=== PATIENT | female | born 1970 | race African-American/Black ===

== ENCOUNTER → 2016-07-04 | Outpatient (CLI) | payer MEDICAID ==
[2016-07-04 09:52] LABS: ABSOLUTE EOSINOPHILS # (AUTO) 0.2 10^3/uL (0.0-0.6); ABSOLUTE MONOCYTES (AUTO) 0.5 10^3/uL (0.1-1.4); ABSOLUTE NEUT (AUTO) 3.2 10^3/uL (1.7-8.2); BASOPHILS % (AUTO) 0.5 % (0-2); EOSINOPHILS % (AUTO) 3.2 % (0-6); HEMATOCRIT 38.2 % (36.0-47.0); HEMOGLOBIN 12.4 g/dL (12.0-15.5); MEAN CORPUSCULAR HEMOGLOBIN 26.2 pg (27.0-33.4); MEAN CORPUSCULAR HGB CONC 32.3 g/dL (32.0-36.0); MEAN CORPUSCULAR VOLUME 81 fl (80-97); RED BLOOD COUNT 4.72 10^6/uL (3.72-5.28); RED CELL DISTRIBUTION WIDTH 14.9 % (11.5-14.0); SEGMENTED NEUTROPHILS % (AUTO) 46.3 % (42-78); WHITE BLOOD COUNT 6.9 10^3/uL (4.0-10.5)
[2016-07-04 10:22] LABS: BLOOD UREA NITROGEN 8 mg/dL (7-20); CALCIUM 10.2 mg/dL (8.4-10.2); GLUCOSE 99 mg/dL (75-110)
[2016-07-04 10:23] LABS: ALANINE AMINOTRANSFERASE 24 U/L (9-52); ALBUMIN 4.1 g/dL (3.5-5.0); ALKALINE PHOSPHATASE 106 U/L (38-126); ANION GAP 8 (5-19); ASPARTATE AMINO TRANSFERASE 17 U/L (14-36); BILIRUBIN,TOTAL 0.6 mg/dL (0.2-1.3); CARBON DIOXIDE 31 mmol/L (22-30); CHLORIDE 103 mmol/L (98-107); CHOLESTEROL 203.69 mg/dL (0-200); Direct HDL 54 mg/dL (>40); POTASSIUM 4.1 mmol/L (3.6-5.0); SODIUM 142.1 mmol/L (137-145); TOTAL PROTEIN 7.7 g/dL (6.3-8.2); TRIGLYCERIDES 117 mg/dL (<150)
[2016-07-04 10:33] LABS: DIRECT LDL 115 mg/dL (<100)
[2016-07-04 10:47] LABS: THYROID STIMULATING HORMONE 2.61 uIU/mL (0.47-4.68)
== END ==
LOC: OD 08:28
PROVIDERS: ATTEND Nurse Practitioner Psychiatric/Mental Health
DX: F20.3 Undifferentiated schizophrenia (principal); Z79.899 Other long term (current) drug therapy
CPT/HCPCS: 36415; 80053; 80061; 84439; 84443; 85025

== ENCOUNTER → 2018-08-09 | Outpatient (CLI) | payer MEDICAID ==
--- NOTE | 2018-08-12 09:45 | WOMENS IMAGING REPORT ---
EXAM DESCRIPTION: BILAT SCREENING MAMMO W/CAD COMPLETED DATE/TIME: 08/09/2018 11:55 am REASON FOR STUDY: Z12.31 ENCOUNTER FOR SCREENING MAMMOGRAM FOR MALIGNANT NEOPLASM OF BREAST Z12.31 ENCNTR SCREEN MAMMOGRAM FOR MALIGNANT NEOPLASM OF WAI COMPARISON: 05/04/2015 TECHNIQUE: Standard craniocaudal and mediolateral oblique views of each breast recorded using digita l acquisition. LIMITATIONS: None. FINDINGS: No masses, calcifications or architectural distortion. No areas of suspicion. Read with the assistance of CAD. .[facility] - R2 [employer] In[employer] Version 9.2 IMPRESSION: NORMAL MAMMOGRAM. BIRADS 1. BREAST DENSITY: b. There are scattered areas of fibroglandular density. BIRAD: 1 NEGATIVE RECOMMENDATION: ROUTINE SCREENING COMMENT: The patient has been notified of the results by letter per MQSA requirements. Additional no tification policies are in place for contacting patient with suspicious or incomplete findings. Quality ID #[id number]: The [employer] recommends an annual screening mammogram for women aged 40 years or over. This facility utilizes a reminder system to ensure that all patients receive reminder letters, and/or direct phone calls for appointments. This includes reminders for routine scr eening mammograms, diagnostic mammograms, or other Breast Imaging Interventions when appropriate. Th is patient will be placed in the appropriate reminder system. TECHNICAL DOCUMENTATION: FINDING NUMBER: (1) ASSESSMENT: (1) JOB ID: [id number] [employer]- All Rights Reserved Reading location - IP/workstation name: [email or web address]
== END ==
LOC: WI 11:33
PROVIDERS: ATTEND Physician Assistant Medical
DX: Z12.31 Encounter for screening mammogram for malignant neoplasm of breast (principal)
CPT/HCPCS: 77067